=== PATIENT | male | born 1950 | race Caucasian/White ===

== ENCOUNTER → 2016-12-08 | Outpatient (CLI) | payer OTHER ==
[~2016-12-08] MED LIST: ALEVE220 M1 PO; ASPIRIN EC81 M1 PO; DOXYCYCLINE PO; EC-NAPROSYN500 MG PO; LORTAB 7.5-5001 TAB PO
--- NOTE | ~2016-12-08 | BD1 ---
[facility] A Service of [facility] & [facility] RADIOLOGY TEXT RESULTS PATIENT: MERNA KAUR LOCATION: [facility] : 51 UNIT #: [id number] AGE: [address]: Rad Wright MD SEX: M ORDER DR: [id number] [facility] [address] [place], [place] [address] [id number] O MR#: [id number] Acc #: [id number] NAME: MERNA KAUR : 1950 SEX: M STUDY DATE/TIME: 12/08/2016 13:01 UNIT: [facility] ROOM: STUDY DESCRIPTION: BD Dexa Bone Dens 1+ Site Attending Physician: Rad Wright M.D. Referring Physician: Rad Wright M.D. Ordering Physician: Rad Wright M.D. Primary Care Physician: Rad Wright M.D. MEDICAL IMAGING REPORT This report is preliminary unless electronic signature is present EXAM DXA scan, 12/08/2016. HISTORY Osteopenia. Smoking history for 50 years. Idiopathic scoliosis. FINDINGS Bone mineral density in the lumbar spine from L1-L4 was 0.919 g/cm2 which is 1.6 standard deviations below the mean when compared to the young adult reference population which is characteristic of osteopenia. This is 0.8 standard deviations below the mean when compared to the age-matched population. Bone mineral density in the left femoral neck was 0.67 g/cm2 which is 1.9 standard deviations below the mean when compared to the young adult reference population which is characteristic of osteopenia. This is 0.9 standard deviations below the mean when compared to the age-matched population. IMPRESSION Bone mineral density in the lumbar spine and the left hip characteristic of osteopenia . Dictated by... Alex Fernando M.D. THIS IS AN ELECTRONICALLY VERIFIED REPORT Alex Fernando M.D. at 12/09/2016 7:14 AM KILO/jericho TD: 12/08/2016 20:25 [facility] A Service of [facility] & [facility] RADIOLOGY TEXT RESULTS PATIENT: MERNA KAUR LOCATION: [facility] : 51 UNIT #: [id number] AGE: [address]: Rad Wright MD SEX: M ORDER DR: JOB #: [id number] MEDICAL IMAGING REPORT Page 1 of 1 COPY
== END | disposition home or self-care (01) ==
LOC: CWCC 12:47
DX: M85.80 Other specified disorders of bone density and structure, unspecified site (principal); M85.89 Other specified disorders of bone density and structure, multiple sites
CPT/HCPCS: 77080

== ENCOUNTER → 2016-12-08 | Outpatient (CLI) | payer OTHER ==
--- NOTE | ~2016-12-08 | US37 ---
[facility] A Service [facility] RADIOLOGY TEXT RESULTS PATIENT: MERNA KAUR LOCATION: CNIV : 51 UNIT #: [id number] AGE: [address]: Maria L Song SEX: M ORDER DR: [id number] [facility] [address] [place], [place] [address] [id number] O MR#: [id number] Acc #: [id number] NAME: MERNA KAUR : 1950 SEX: M STUDY DATE/TIME: 12/08/2016 11:04 UNIT: CNIV ROOM: STUDY DESCRIPTION: US Carotid W/Doppler Bilateral Attending Physician: Maria L Song A.P.R.N. Referring Physician: Maria L Song A.P.R.N. Ordering Physician: Maria L Song A.P.R.N. Primary Care Physician: Primary Care Physician No MEDICAL IMAGING REPORT This report is preliminary unless electronic signature is present EXAM Carotid Doppler bilateral, 12/08/2016 HISTORY Blurred vision left eye for 1 week with numbness in right arm for 3 days. Evaluate for carotid stenosis. FINDINGS Dowd-scale carotid artery images were obtained as well as Doppler waveform, spectral analysis and color flow Doppler imaging. The examination was interpreted according to NASCET criteria. There is no hemodynamically significant stenosis in either carotid artery. Peak systolic velocity in the right and left internal carotid arteries was 98 cm/sec and 79 cm/sec respectively. Antegrade blood flow is seen in both vertebral arteries. There is mild plaque bilaterally. IMPRESSION No hemodynamically significant stenosis in either carotid artery. Dictated by... Alex Fernando M.D. THIS IS AN ELECTRONICALLY VERIFIED REPORT Alex Fernando M.D. at 12/09/2016 7:14 AM KILO/sebastian TD: 12/08/2016 21:00 JOB #: [id number] MEDICAL IMAGING REPORT [facility] A Service [facility] RADIOLOGY TEXT RESULTS PATIENT: MERNA [facility]AUR [id number] UNIT #: [id number] AGE: [address]: Maria L Song SEX: M ORDER DR: Page 1 of 1 COPY
--- NOTE | ~2016-12-08 | US82 ---
[facility] A Service of [facility] RADIOLOGY TEXT RESULTS PATIENT: MERNA KAUR LOCATION: CNIV : 51 UNIT #: [id number] AGE: [address]: Maria L Song SEX: M ORDER DR: [id number] [facility] [address] [place], [place] [address] [id number] O MR#: [id number] Acc #: [id number] NAME: MERNA KAUR : 1950 SEX: M STUDY DATE/TIME: 12/08/2016 11:21 UNIT: CNIV ROOM: STUDY DESCRIPTION: US LE Art/Art Grafts Comp Rashawn Attending Physician: Maria L Song A.P.R.N. Referring Physician: Maria L Song A.P.R.N. Ordering Physician: Maria L Song A.P.R.N. Primary Care Physician: Primary Care Physician No MEDICAL IMAGING REPORT This report is preliminary unless electronic signature is present EXAMINATION Arterial duplex imaging of the femoral-femoral pop bypass graft was performed. HISTORY Femoral bypass graft FINDINGS The left common femoral artery has atherosclerotic disease, but is patent. Velocity in the left common femoral artery is 90 cm/second. Proximal superficial femoral artery is diseased, but appears to have flow. Profunda femoral artery is patent. Left iliac artery is patent with a velocity of 96 cm/second. Right common femoral artery is patent with a velocity of 89 cm/second. Right iliac artery is patent with a velocity of 71 cm/second. Right profunda femoral artery is patent and superficial femoral artery is patent. There is no bypass graft that has been imaged. IMPRESSION The right and left common femoral arteries and the iliac arteries are patent. No bypass graft has been imaged. Clinical correlation is recommended and a repeat study with further history may be warranted if necessary. Dictated by... Jorge Vu M.D. THIS IS AN ELECTRONICALLY VERIFIED REPORT Jorge Vu M.D. at 12/23/2016 2:16 PM SA/humaira STS. [facility] A Service of [facility] RADIOLOGY TEXT RESULTS PATIENT: MERNA KAUR LOCATION: [facility] : 51 UNIT #: [id number] AGE: [address]: Maria L Song SEX: M ORDER DR: TD: 12/09/2016 06:59 JOB #: [id number] MEDICAL IMAGING REPORT Page 1 of 1 COPY
--- NOTE | ~2016-12-08 | US136 ---
[facility] A Service of [facility] RADIOLOGY TEXT RESULTS PATIENT: MERNA KAUR LOCATION: CNIV : 51 UNIT #: [id number] AGE: [address]: Maria L Song SEX: M ORDER DR: [id number] [facility] [address] [place], [place] [address] [id number] O MR#: [id number] Acc #: [id number] NAME: MERNA KAUR : 1950 SEX: M STUDY DATE/TIME: 12/08/2016 10:52 UNIT: CNIV ROOM: STUDY DESCRIPTION: U/L [facility] Art Study [facility] Bil Attending Physician: Maria L Song A.P.R.N. Referring Physician: Maria L Song A.P.R.N. Ordering Physician: Maria L Song A.P.R.N. Primary Care Physician: No Primary Care Physician MEDICAL IMAGING REPORT This report is preliminary unless electronic signature is present EXAM Ankle brachial indices. HISTORY Peripheral vascular disease. FINDINGS Waveforms are normal at the right side and dampened on the left side. Doppler velocity waveforms are triphasic at the right dorsalis pedis and posterior tibial and monophasic on the left side. Right brachial pressure is 183 and left brachial pressure is 159 mmHg. On the right side, dorsalis pedis is 159, posterior tibial pressure is 163, great toe is 126 for a right ankle brachial index of 0.89. On the left side, posterior tibial is 120, dorsalis pedis 97, great toe 96 for a left LIYA of 0.66. IMPRESSION 1. Minimal peripheral vascular disease is seen on the right side with LIYA of 0.89. 2. Moderate peripheral vascular disease is seen on the left side with ankle brachial index of 0.66. Dictated by.Leola Vu M.D. THIS IS AN ELECTRONICALLY VERIFIED REPORT Jorge Vu M.D. at 12/23/2016 2:15 PM /humaira TD: 12/09/2016 06:50 JOB #: [id number] [facility] A Service of [facility] RADIOLOGY TEXT RESULTS PATIENT: MERNA KAUR [id number] 51 UNIT #: [id number] AGE: [address]: Maria L Song SEX: M ORDER DR: MEDICAL IMAGING REPORT Page 1 of 1 COPY
== END | disposition home or self-care (01) ==
LOC: CNIV 09:00
DX: I65.23 Occlusion and stenosis of bilateral carotid arteries (principal); I73.9 Peripheral vascular disease, unspecified; Z95.828 Presence of other vascular implants and grafts
CPT/HCPCS: 93880; 93922; 93925